=== PATIENT | male | born 1965 | race Two or more races ===

== ENCOUNTER 2017-06-11 11:10 | Emergency (ER) | payer OTHER ==
[~2017-06-11] VITALS: Ht 172.7 cm; Wt 98.4 kg
--- NOTE | ~2017-06-11 | CT2 ---
[facility] A Service of [facility] & [facility] RADIOLOGY TEXT RESULTS PATIENT: MASSIMO BLACKMAN LOCATION: [facility] : 69 UNIT #: [id number] AGE: [address]: Ji Farfan MD SEX: M ORDER DR: [id number] [facility] [address] [place], [place] [address] [id number] MR#: [id number] Acc #: [id number] NAME: MASSIMO BLACKMAN : 1965 SEX: M STUDY DATE/TIME: 06/11/2017 16:22 UNIT: [facility] ROOM: STUDY DESCRIPTION: CT Abd and Pelv W Cont Attending Physician: Lonnie Farfan M.D. Ordering Physician: Ed Doctor [id number] [facility] Primary Care Physician: Bradly Dhillon M.D. MEDICAL IMAGING REPORT This report is preliminary unless electronic signature is present EXAM CT abdomen and pelvis with IV contrast COMPARISON None INDICATIONS A 52-year-old male with right lower quadrant abdominal pain for [address] exam was performed with one or more of the following radiation dose reduction techniques: automatic exposure control, adjustment of mA and/or kV according to patient size, and iterative reconstruction. FINDINGS Axial CT imaging abdomen and pelvis was performed after IV administration of 100 mL Isovue-370. Coronal and sagittal reformats were constructed. There are small fat-containing inguinal hernias bilaterally. There is a very small fat-containing umbilical hernia. In the subcutaneous tissues over the right medial anterior chest wall, there is a metallic foreign body measuring up to 6 mm. Chronic in nature. Mild degenerative changes of the sacroiliac joints. Mild multilevel degenerative facet disease of the lower lumbar spine. There are small posterior disk protrusions at all levels of the lumbar spine with sparing at L1-L2. There is a large Schmorl node in the inferior endplate of L4. No acute fractures or suspicious osseous lesions. No acute findings in the imaged lower chest. Gallbladder is unremarkable. There is a 1.3 cm low-density lesion in the left hepatic lobe which could represent focal fat or small cyst. Separate low-density lesion in the right hepatic lobe is too small to characterize STS. [facility] A Service of [facility] & [facility] RADIOLOGY TEXT RESULTS PATIENT: MASSIMO BLACKMAN LOCATION: [facility] : 69 UNIT #: [id number] AGE: [address]: Ji Farfan MD SEX: M ORDER DR: measuring up to 6 mm. A separate tiny low-density lesion in the dome of the right hepatic lobe is also too small to characterize. The stomach is distended with ingested debris. The pancreas, spleen, adrenal glands and left kidney are within normal limits. There is a 1.4 cm low density lesion inferior pole of the right kidney consistent with a simple cyst versus angiomyolipoma. This is benign. No hydronephrosis or hydroureter. Urinary bladder is fluid distended, otherwise unremarkable. Prostate gland demonstrates a single internal central calcification, nonspecific finding. There are pelvic phleboliths. No evidence of bowel obstruction. The appendix appears slightly indistinct but there is no definite associated inflammatory change and the caliber is normal at 7 mm. Abdominal aorta is normal course and caliber with patency of its main branches. No evidence of venous thrombosis. No free fluid or pneumoperitoneum. No adenopathy. IMPRESSION 1. The appendix appears slightly indistinct, nonspecific finding. The appendix is normal caliber. There is no definite associated inflammatory change. Clinical correlation is recommended given the patient's complaint of right lower quadrant abdominal pain. If symptoms persist, repeat imaging could be performed in 24 hours. 2. There are 2 low-density lesions in the right hepatic lobe which are too small to characterize. 3. A 6 mm metallic foreign body within the subcutaneous fat overlying the right anterior lower chest wall measuring up to 6 mm, favored to be chronic in nature. 4. Small fat-containing inguinal hernias. 5. Multilevel posterior disk protrusions of the lumbar spine. Dictated by... Guillermo Ibarra M.D. THIS IS AN ELECTRONICALLY VERIFIED REPORT Guillermo Ibarra M.D. at 06/18/2017 6:37 PM DEANNA/jay TD: 06/11/2017 22:42 JOB #: [id number] MEDICAL IMAGING REPORT Page 1 of 1 COPY
[2017-06-11 13:15] LABS: BASOPHIL# 0.1 X10e3 (0-0.3); BASOPHIL% 1.1 % (0-2.5); EOSINOPHIL# 0.3 X10e3 (0-0.7); HEMATOCRIT 44.9 % (38.0-50.0); HEMOGLOBIN 15.2 gm/dL (13.0-16.0); LYMPHOCYTE# 2.8 X10e3 (1.0-3.5); LYMPHOCYTE% 41.2 % (17.0-45.0); MEAN CELL VOLUME 81.5 FL (83-96); MEAN CORPUSCULAR HEMOGLOBIN 27.7 PG (28-34); MEAN CORPUSCULAR HGB CONC 33.9 g/dL (30-36); MEAN PLATELET VOLUME 8.2 FL (6.5-11.5); MONOCYTE# 0.5 X10e3 (0-1.0); NEUTROPHIL# 3.1 X10e3 (1.5-7.1); NEUTROPHIL% 45.7 % (40-75); PLATELET COUNT 281 X10e3 (140-420); RED BLOOD COUNT 5.51 X10e (3.90-5.60); WHITE BLOOD COUNT 6.7 X10e3 (4.0-10.5)
[2017-06-11 13:19] LABS: DIFF IND NO
[2017-06-11 13:40] LABS: ALBUMIN SERUM 4.3 g/dL (3.5-5.0); BILIRUBIN, DIRECT 0.1 mg/dL (0.0-0.2); BILIRUBIN,INDIRECT 0.8 mg/dL (0.0-0.9); BILIRUBIN,TOTAL 0.9 mg/dL (0.2-2.0); CALCIUM SERUM 8.9 mg/dL (8.4-10.2); GLOM FILT RATE Estimated 87.4 mL/min (>60); POTASSIUM 4.1 mmol/L (3.5-5.1); PROTEIN TOTAL SERUM 7.7 g/dL (6.0-8.3)
[2017-06-11 13:43] LABS: URINE SOURCE CLEAN CATCH
[2017-06-11 13:50] LABS: URINE APPEARANCE CLEAR; URINE BILIRUBIN NEG (NEG); URINE BLOOD NEG (NEG); URINE COLOR YELLOW; URINE GLUCOSE NEG (NEG); URINE KETONE NEG (NEG); URINE LEUKOCYTE ESTERASE NEG (NEG); URINE NITRATE NEG (NEG); URINE PROTEIN NEG (NEG); URINE SPECIFIC GRAVITY 1.031 (1.003-1.035)
[2017-06-11 13:56] LABS: CULTURE INDICATED? NO
== END 2017-06-11 17:55 | disposition home or self-care (01) ==
LOC: CED 11:10
PROVIDERS: Emergency Medicine
DX: R10.11 Right upper quadrant pain (principal)
CPT/HCPCS: 36415; 74177; 80048; 80076; 81003; 82150; 83690; 85025; 99284; Q9967